=== PATIENT | female | born 2000 | race Caucasian/White ===

== ENCOUNTER 2023-09-24 09:53 | Emergency (ER) | payer BC, SELFPAY ==
[2023-09-24 09:57] VITALS: BP 108/70; PULSE 71; RESP 18; TEMP 37.2; O2SAT 97; BMI 24.9
--- NOTE | 2023-09-24 10:18 | ED_ITS ---
HPI - General Adult General Time Seen by Provider: 10:18 Date Seen: 09/24/23 Chief complaint: Extremity Pain/Injury, Lower Stated complaint: Fell off horse - hip injury tingling - 8 wks preg Time Seen by Provider: 09/24/23 10:17 Source: patient and RN notes reviewed Mode of arrival: ambulatory Limitations: no limitations History of Present Illness HPI narrative: This 23-year-old female is coming into the ER ambulatory of her own accord but with concern of left hip, left low back pain and tingling feeling in the left leg. She was jumping a horse when she came off of it. She was wearing a helmet. May have hit her head but she has no head pain, no headache, no visual change. She has no neck pain. There was no loss of consciousness. No difficulty breathing, no chest pain. She does have low back pain, felt tingling in the left leg. She admits she has some chronic low back pain and chronic left sciatica issues. She had significant tingling down the left leg but notes it was not hurting to move her hip. She feels left pelvic or low back pain with walking. The tingling in the leg is getting better. She is currently about 8 weeks , has had no pelvic cramping, no vaginal leaking or bleeding. Related Data Home Medications ?Medication ?Instructions ?Recorded ?Confirmed No Known Home Medications 09/24/23 09/24/23 Allergies Allergy/AdvReac Type Severity Reaction Status Date / Time No Known Drug Allergies Allergy Verified 09/24/23 10:03 Review of Systems Status of ROS: Reports: 6 or more systems reviewed and unremarkable except as noted in History and below [facility] Social History Smoking Status: Never smoker Do you use any of these nicotine containing products: None How often do you have a drink containing alcohol: never How often do you have six or more drinks on one occasion: Never AUDIT-C Alcohol total score: 0 Non-prescribed substance use: denies use Exam Const: Vital Signs, click to edit/add: Vital Signs - 24 hr 09/24/23 09:57 Temperature 99 F Pulse Rate [Right Pulse Oximeter] 71 Respiratory Rate 18 Blood Pressure [Ri ght Upper Arm] 108/70 Pulse Oximetry 97 Oxygen Delivery Me thod Room Air This 23-year-old female is alert, interactive, no apparent distress. Ambulatory into the ED of her own accord. Pupils equal round reactive, sclera clear, face atraumatic. No midline tenderness of her neck, full range of motion of her neck, no cervical adenopathy, no thyromegaly masses or nodules. Lungs are clear, good air entry, wheezing or crackles. CV regular rate and rhythm no murmur. She has no midline tenderness of her back but she has left paraspinous tenderness and seemingly some pain over the left SI joint area. Palpation deep in her left buttock also gives her some increased pain. Strength in her lower extremities is 5/5 and symmetric, negative straight leg raising. Pulses are excellent at both posterior tibialis and dorsalis pedis and symmetric. She has normal light touch sensation that is symmetric in her lower extremities. She has no pain on range of motion of the hip joint, no pain with in the thigh any lower extremity, ankle or foot. Pain seems to be isolating to the left low back. Documenting provider has reviewed patient's vital signs: yes Course Course ED Course: The mechanism certainly could support significant injury. This patient is early about 8 weeks. We did discuss that CT imaging is certainly for more sensitive for picking up bony pathology or fracture. However with her early and her improvement in symptoms, do think MR imaging could be initiated. I do think were going to have to look at her lumbar spine and her pelvis. Clinically on exam I am not concerned about hip fracture. Certainly a pelvic fracture or a lumbar/sacral injury could be present. I do agree with the patient that it is difficult in the setting of chronic low back and left sciatica symptoms but there certainly still is the chance of new injury. We will do a limited ultrasound just to ensure the status of the is good. Clinically there is no evidence of severe pelvic pathology, would doubt that there would be any acute traumatic injury to the uterus or vagina. Will look at an ultrasound no just to ensure that the is looking healthy. Reevaluation(s) Time of Reevaluation #1: 12:14 Reevaluation #1: Checked on patient, she has completed her MRIs, awaiting those to be read. She will be going to get her limited OB ultrasound. No new concerns, patient is stable. Time of Reevaluation #2: 13:23 Reevaluation #2: Reviewed with patient her MRI findings. She does have some probable chronic lumbar issues. We did review the subchorionic hemorrhage. She has a follow-up ultrasound this coming weak, have advised her to keep this. Did discuss that there could be vaginal spotting that could ensue, does not have to however. If she has heavy vaginal bleeding, she would need emergent re-evaluation. As far as the umbilical cord cyst, unclear of the significance of this but she can follow up with her rivet spinner next week on this. She does have a copy of the reports. We discussed icing the gluteal contusion, she can try Tylenol. Vital Signs Vital signs: Initial Vital Signs Temperature 99 F 09/24/23 09:57 Temperature Source Temporal Artery Scan 09/24/23 09:57 Pulse Rate 71 09/24/23 09:57 Pulse Rhythm Regular 09/24/23 09:57 Respiratory Rate 18 09/24/23 09:57 Blood Pressure 108/70 09/24/23 09:57 Blood Pressure Mean 82 09/24/23 09:57 Blood Pressure Position Sitting 09/24/23 09:57 Pulse Oximetry 97 09/24/23 09:57 Oxygen Delivery Method Room Air 09/24/23 09:57 Vital Signs Temperature 99 F 09/24/23 09:57 Pulse Rate 71 09/24/23 09:57 Respiratory Rate 18 09/24/23 09:57 Blood Pressure 108/70 09/24/23 09:57 Pulse Oximetry 97 09/24/23 09:57 Oxygen Delivery Method Room Air 09/24/23 09:57 Temperature 99 F 09/24/23 09:57 Pulse Rate 71 09/24/23 09:57 Respiratory Rate 18 09/24/23 09:57 Blood Pressure 108/70 09/24/23 09:57 Pulse Oximetry 97 09/24/23 09:57 Oxygen Delivery Method Room Air 09/24/23 09:57 Medical Decision Making Imaging Data US limited OB: Attestation: I have reviewed the pertinent imaging results. Radiologist's impression: Patient: AUSTIN MARLOW Facility:?[facility] Patient ID:?[id number] Site Patient ID:?[id number]. Site :?2000 Study:?US-OB Pelvis TRANSVAGINAL-09/24/2023 12:44:42 PM Ordering Physician:Deena Bustos Final Report: Indication: FELL OFF HORSE, 8 WEEKS LMP: 05/04/2024 Technique: Real-time sonographic images of the pelvis were obtained transabdominally and transvaginally using grayscale, color, and Doppler imaging. Comparison: None. Findings: Uterus: Normal. Gestational sac: Mean sac diameter measures 3.2 centimeter. 0.4 x 0.3 x 0.9 centimeter subchorionic hemorrhage seen anteriorly. pole: Alanson-rump length measures 1.5 centimeter, compatible with an ave rage ultrasound age of 8 weeks 0 days. Yolk sac: Present. heart rate: 167 beats/min. 0.4 x 0.2 x 0.3 centimeter umbilical cord cyst. Right ovary: Size: 4.8 x 2.6 x 2.8 centimeter. Appearance: Normal morphology. 2.7 x 2.2 x 2.6 centimeter corpus luteum. Left ovary: Size: 3.5 x 0.9 x 2.0 centimeter. Appearance: Normal morphology. No masses. Bladder: Visualized bladder is normal. Other: No free fluid. Impression: 1. Single live intrauterine with crown-rump length corresponding to 8 weeks 0 days. 2. 0.4 x 0.3 x 0.9 centimeter subchorionic hemorrhage seen anteriorly. 3. 0.4 x 0.2 x 0.3 centimeter umbilical cord cyst. Dictated by Albino Krueger MD @ 09/24/2023 12:59:04 PM (Electronic Signature) MR lumbar spine: Attestation: I have reviewed the pertinent imaging results. Radiologist's impression: Patient: AUSTIN MARLOW Facility:?[facility] Patient ID:?[id number] Site Patient ID:?[id number]. Site :?2000 Study:?MRI-Spine Lumbar W/O-09/24/2023 12:03:30 PM Ordering Physician:Deena Bustos Final Report: Indication: Trauma. Fall off horse. Technique: Multiplanar, multisequence MRI of the lumbar spine was performed without intravenous contrast. Comparison: None relevant available. Findings: There are 5 lumbar type vertebral segments identified. The vertebral body heights are maintained without evidence of fracture. There is no discrete T1 hypointense marrow infiltrating process. The conus medullaris terminates at T12, normal. Cauda equina appears unremarkable. T12-L1: No spinal canal or neural foraminal stenosis. L1-2: No spinal canal or neural foraminal stenosis. L2-3: No spinal canal or neural foraminal stenosis. L3-4: No spinal canal or neural foraminal stenosis. L4-5: Disc bulge with small central disc protrusion. Mild spinal canal narrowing. No neural foraminal narrowing. L5-S1: No spinal canal or neural foraminal stenosis. The visualized sacroiliac joints appear patent. Impression: 1. At L4-5, small central disc protrusion with mild spinal canal narrowing. 2. No significant spondylosis at the remaining lumbar levels. MR pelvis: Attestation: I have reviewed the pertinent imaging results. Radiologist's impression: Patient: AUSTIN MARLOW Facility:?[facility] Patient ID:?[id number] Site Patient ID:?[id number]. Site :?2000 Study:?MRI-Pelvis ([place]) W/O-09/24/2023 12:05:24 PM Ordering Physician:?Alisson Bustos Final Report: EXAM: MRI OF THE PELVIS, WITHOUT CONTRAST CLINICAL INDICATION: Left back and buttock pain. History of injury. COMPARISON PLAIN FILMS: None. COMPARISON CROSS-SECTIONAL IMAGING STUDIES: None. TECHNICAL: Axial, sagittal and coronal T1, PD FS and STIR images of the pelvis. FINDINGS: HIP JOINTS: Right: No joint effusion. No subchondral edema or cystic change. Left: No joint effusion. No subchondral edema or cystic change. OSSEOUS STRUCTURES: No fracture, bone marrow contusion or stress change. No or marrow replacement process. No evidence for avascular necrosis. MUSCULOTENDINOUS STRUCTURES AND BURSAE: Gluteus Minimus and Medius: No tendon tear or tendinopathy. No muscle atrophy or edema. Bursae: No trochanteric or iliopsoas bursitis. Common Hamstrings: No tendon tear or tendinopathy. Adductors and Flexors: Tendons and myotendinous junctions are intact. No muscle atrophy or edema. SOFT TISSUES: Mild subcutaneous edema in the left gluteal region. Findings consistent with recent injury. No hematoma fluid collection. OTHER JOINTS: Sacroiliac joints are maintained. Pubic symphysis is maintained. INTRAPELVIC CONTENTS: Mild enlargement of the uterus with fluid in the endometrial canal and eccentric soft tissue thickening. Findings are nonspecific MRI. Ultrasound is recommended for evaluation if there is clinical concern. No mass, fluid collection or adenopathy. No inguinal hernia. NEUROVASCULAR STRUCTURES: No abnormality of the proximal femoral or sciatic nerves. No aneurysmal dilatation of the visualize distal aorta. IMPRESSION: 1. Mild subcutaneous edema in the left gluteal region consistent with recent injury. 2. No fracture, contusion, myotendinous injury or hematoma. 3. Ultrasound is recommended to characterize if there is clinical concern. Dictated by Eric Chambers MD @ 09/24/2023 12:30:39 PM (Electronic Signature) Discharge Plan Discharge Clinical Impression: Injury while horseback riding, Subchorionic hemorrhage in first trimester Patient Disposition: Home, Self-Care Condition: Stable Instructions: Contusion in Adults (ED), Subchorionic Hemorrhage (ED) Additional Instructions: No horseback riding until you have been cleared by her rivet spinner. Do keep the ultrasound that is scheduled for next week. Can ice the left buttock to help decrease pain and swelling. If you need to, can take Tylenol per bottle directions as needed for pain control. Need to follow-up with your primary care doctor if you have ongoing back complaints. Can review the significance of the umbilical cord cyst with your rivet spinner. Do need re-evaluation if you do develop any significant vaginal bleeding. Activity Level: Activity as Tolerated Discharge Diet: Regular Prescriptions: No Action No Known Home Medications Follow Up/Referrals: Provider,Not a Local [Primary Care Provider] - Stand Alone Forms: [employer] Info Instructions
--- NOTE | 2023-09-24 10:29 | CRLHL7_ITS ---
For Patients: As a result of the Century Cures Act, medical imaging exams and procedure reports are released immediately into your electronic medical record. You may view this report before your referring provider. If you have questions, please contact your health care provider. EXAM: MRI OF THE PELVIS, WITHOUT CONTRAST CLINICAL INDICATION: Left back and buttock pain. History of injury. COMPARISON PLAIN FILMS: None. COMPARISON CROSS-SECTIONAL IMAGING STUDIES: None. TECHNICAL: Axial, sagittal and coronal T1, PD FS and STIR images of the pelvis. FINDINGS: HIP JOINTS: Right: No joint effusion. No subchondral edema or cystic change. Left: No joint effusion. No subchondral edema or cystic change. OSSEOUS STRUCTURES: No fracture, bone marrow contusion or stress change. No or marrow replacement process. No evidence for avascular necrosis. MUSCULOTENDINOUS STRUCTURES AND BURSAE: Gluteus Minimus and Medius: No tendon tear or tendinopathy. No muscle atrophy or edema. Bursae: No trochanteric or iliopsoas bursitis. Common Hamstrings: No tendon tear or tendinopathy. Adductors and Flexors: Tendons and myotendinous junctions are intact. No muscle atrophy or edema. SOFT TISSUES: Mild subcutaneous edema in the left gluteal region. Findings consistent with recent injury. No hematoma fluid collection. OTHER JOINTS: Sacroiliac joints are maintained. Pubic symphysis is maintained. INTRAPELVIC CONTENTS: Mild enlargement of the uterus with fluid in the endometrial canal and eccentric soft tissue thickening. Findings are nonspecific MRI. Ultrasound is recommended for evaluation if there is clinical concern. No mass, fluid collection or adenopathy. No inguinal hernia. NEUROVASCULAR STRUCTURES: No abnormality of the proximal femoral or sciatic nerves. No aneurysmal dilatation of the visualize distal aorta. IMPRESSION: 1. Mild subcutaneous edema in the left gluteal region consistent with recent injury. 2. No fracture, contusion, myotendinous injury or hematoma. 3. Ultrasound is recommended to characterize if there is clinical concern. Dictated by Eric Chambers MD @ 09/24/2023 12:30:39 PM (Electronically Signed)
--- NOTE | 2023-09-24 10:29 | CRLHL7_ITS ---
For Patients: As a result of the Century Cures Act, medical imaging exams and procedure reports are released immediately into your electronic medical record. You may view this report before your referring provider. If you have questions, please contact your health care provider. Indication: FELL OFF HORSE, 8 WEEKS LMP: 05/04/2024 Technique: Real-time sonographic images of the pelvis were obtained transabdominally and transvaginally using grayscale, color, and Doppler imaging. Comparison: None. Findings: Uterus: Normal. Gestational sac: Mean sac diameter measures 3.2 centimeter. 0.4 x 0.3 x 0.9 centimeter subchorionic hemorrhage seen anteriorly. pole: Altha-rump length measures 1.5 centimeter, compatible with an average ultrasound age of 8 weeks 0 days. Yolk sac: Present. heart rate: 167 beats/min. 0.4 x 0.2 x 0.3 centimeter umbilical cord cyst. Right ovary: Size: 4.8 x 2.6 x 2.8 centimeter. Appearance: Normal morphology. 2.7 x 2.2 x 2.6 centimeter corpus luteum. Left ovary: Size: 3.5 x 0.9 x 2.0 centimeter. Appearance: Normal morphology. No masses. Bladder: Visualized bladder is normal. Other: No free fluid. Impression: 1. Single live intrauterine with crown-rump length corresponding to 8 weeks 0 days. 2. 0.4 x 0.3 x 0.9 centimeter subchorionic hemorrhage seen anteriorly. 3. 0.4 x 0.2 x 0.3 centimeter umbilical cord cyst. Dictated by Albino Krueger MD @ 09/24/2023 12:59:04 PM (Electronically Signed)
--- NOTE | 2023-09-24 10:29 | CRLHL7_ITS ---
For Patients: As a result of the Cures Act, medical imaging exams and procedure reports are released immediately into your electronic medical record. You may view this report before your referring provider. If you have questions, please contact your health care provider. Indication: Trauma. Fall off horse. Technique: Multiplanar, multisequence MRI of the lumbar spine was performed without intravenous contrast. Comparison: None relevant available. Findings: There are 5 lumbar type vertebral segments identified. The vertebral body heights are maintained without evidence of fracture. There is no discrete T1 hypointense marrow infiltrating process. The conus medullaris terminates at T12, normal. Cauda equina appears unremarkable. T12-L1: No spinal canal or neural foraminal stenosis. L1-2: No spinal canal or neural foraminal stenosis. L2-3: No spinal canal or neural foraminal stenosis. L3-4: No spinal canal or neural foraminal stenosis. L4-5: Disc bulge with small central disc protrusion. Mild spinal canal narrowing. No neural foraminal narrowing. L5-S1: No spinal canal or neural foraminal stenosis. The visualized sacroiliac joints appear patent. Impression: 1. At L4-5, small central disc protrusion with mild spinal canal narrowing. 2. No significant spondylosis at the remaining lumbar levels. Dictated by Kem Chandler MD @ 09/24/2023 12:24:25 PM (Electronically Signed)
[2023-09-24 13:30] VITALS: BP 105/72; PULSE 56; RESP 18; O2SAT 100
== END 2023-09-24 13:42 | disposition home or self-care (01) ==
PROVIDERS: Emergency Provider Family Medicine
DX: S30.0XXA Contusion of lower back and pelvis, initial encounter (principal); V80.010A Animal-rider injured by fall from or being thrown from horse in noncollision accident, initial encounter; O20.8 Other hemorrhage in early pregnancy
CPT/HCPCS: 72148; 72195; 76817; 99284